=== PATIENT | female | born 1950 | race Hispanic/Latino ===

== ENCOUNTER 2017-01-22 14:10 | Outpatient (CLI) | payer MEDICARE ==
--- NOTE | 2017-01-22 15:33 | RAD ---
TWO VIEWS RIGHT HEEL: Comparison: None. History: Right heel pain for five months. FINDINGS: Two views of the right heel shows no evidence of acute fracture or dislocation. Small plantar and po sterior calcaneal enthesophytes are incidentally seen. No soft tissue swelling is seen. IMPRESSION: Small healed spurs without acute osseous abnormality. POS: [facility]
--- NOTE | 2017-01-22 15:35 | RAD ---
PA AND LATERAL CHEST: History: 66-year-old female with shortness of breath. Smoker. FINDINGS: The heart size is normal. The aorta is tortuous. The lungs are expanded without focal areas of conso lidation, pneumothorax, mass or pleural effusions. There are degenerative changes in the spine. IMPRESSION: No radiographic evidence of acute cardiopulmonary process. POS: [facility]
== END 2017-01-22 14:11 | disposition home or self-care (01) ==
LOC: NAV RAD 14:10
PROVIDERS: ATTEND Nurse Practitioner Family
DX: M79.671 Pain in right foot (principal); Z72.0 Tobacco use
CPT/HCPCS: 71020

== ENCOUNTER 2017-11-16 09:34 | Emergency (ER) | payer MEDICARE | END 2017-11-16 10:29 | disposition home or self-care (01) | LOC: NAV ERS 09:34 | DX: S20.162A Insect bite (nonvenomous) of breast, left breast, initial encounter (principal); N60.82 Other benign mammary dysplasias of left breast; E78.5 Hyperlipidemia, unspecified; I10 Essential (primary) hypertension; F41.9 Anxiety disorder, unspecified; F17.210 Nicotine dependence, cigarettes, uncomplicated; J45.909 Unspecified asthma, uncomplicated; Z79.899 Other long term (current) drug therapy; W57.XXXA Bitten or stung by nonvenomous insect and other nonvenomous arthropods, initial encounter | CPT/HCPCS: 99283 ==

== ENCOUNTER 2019-04-26 16:26 | Outpatient (CLI) | payer MEDICARE ==
--- NOTE | 2019-04-26 16:43 | RAD ---
Exam:3 views left shoulder. HISTORY: Pain. COMPARISON: None FINDINGS: Standard change in the acromioclavicular joint space. Glenohumeral joint space is preserved . No fracture or dislocation. Visualized left ribs are unremarkable. IMPRESSION: Degenerative change in the acromioclavicular joint space. No fracture or dislocation.
--- NOTE | 2019-04-26 16:46 | RAD ---
Exam:Right shoulder 3 views HISTORY: Pain. COMPARISON: None FINDINGS: Moderate degenerative change in the acromioclavicular joint space. Glenohumeral joint space preserved. No fracture or dislocation. Visualized right ribs are unremarkable IMPRESSION: Moderate degenerative change in the acromioclavicular joint space.
== END 2019-04-26 16:27 | disposition home or self-care (01) ==
LOC: NAV RAD 16:26
PROVIDERS: ATTEND Family Medicine
DX: M25.511 Pain in right shoulder (principal); M25.512 Pain in left shoulder; M19.011 Primary osteoarthritis, right shoulder; M19.012 Primary osteoarthritis, left shoulder

== ENCOUNTER 2022-02-28 11:08 | Emergency (ER) | payer MEDICARE, OTHER ==
[2022-02-28 12:28] LABS: #Basophils 0.1 thou/uL (0.0-0.2); #Eosinphils 0.2 thou/uL (0.0-0.7); #Lymphocytes 2.3 thou/uL (1.20-3.40); #Monocytes 0.6 thou/uL (0.11-0.59); #Neutrophils 4.4 thou/uL (1.40-6.50); %Basophils 0.7 % (0.0-1.0); %Eosinophils 2.1 % (0.0-10.0); %Lymphocytes 30.7 % (21.0-51.0); %Monocytes 7.8 % (0.0-10.0); %Neutrophils 58.7 % (42.0-75.0); Hemoglobin 14.6 g/dL (12.0-16.0); Mean Corpuscular HGB CONC 32.4 g/dL (32.0-36.0); Mean Corpuscular Hemoglobin 27.8 pg (27.0-31.0); Mean Corpuscular Volume 85.7 fl (78.0-98.0); Mean Platelet Volume 8.5 fL (7.4-10.4); Platelet Count 185 10x3/uL (130-400); RBC Distribution Width 11.9 % (11.5-14.5); Red Blood Cell (RBC) Count 5.26 mill/uL (4.20-5.40); White Blood Cell (WBC) Count 7.5 10x3/uL (4.8-10.8)
[2022-02-28] MEDS ORDERED: traMADol HCl 50 MG TAB ONE (12:33)
[2022-02-28 12:43] LABS: ALT (SGPT) 21 U/L (8-55); AST (SGOT) 15 U/L (5-34); Albumin 4.6 g/dL (3.4-4.8); Alkaline Phosphatase 87 U/L (40-110); Anion Gap 15 mmol/L (10-20); BUN (Urea Nitrogen) 11 mg/dL (9.8-20.1); Bilirubin, Total 0.5 mg/dL (0.2-1.2); Calc. Creatinine Clearance 0 mL/min (70-130); Calcium 9.5 mg/dL (7.8-10.44); Carbon Dioxide 26 mmol/L (23-31); Chloride 106 mmol/L (98-107); Estimated GFR 85; Globulin 2.7 g/dL (2.4-3.5); Glucose 90 mg/dL (83-110); Lipase 45 U/L (8-78); Potassium 4.1 mmol/L (3.5-5.1); Protein, Total 7.3 g/dL (5.8-8.1); Sodium 143 mmol/L (136-145)
[2022-02-28 12:47] LABS: Bilirubin Negative (Negative); Blood, Urine Trace (Negative); Glucose, Urine (Dipstick) Negative (Negative); Ketone, Urine Negative (Negative); Leukocyte Small (Negative); Nitrite Negative (Negative); Protein, Urine (Dipstick) Negative (Neg-Trace); Urobilinogen 0.2 mg/dL (Less than 2)
[2022-02-28 12:48] LABS: Clarity SL HAZY (Clear)
[2022-02-28 13:03] LABS: Bacteria/HPF 1+ HPF (None Seen); RBC/HPF 0-3 HPF (0-3); WBC/HPF 0-3 HPF (0-3)
== END 2022-02-28 13:08 | disposition home or self-care (01) ==
LOC: NAV ERS 11:08
DX: R22.31 Localized swelling, mass and lump, right upper limb (principal); E78.00 Pure hypercholesterolemia, unspecified; I10 Essential (primary) hypertension; F17.210 Nicotine dependence, cigarettes, uncomplicated
CPT/HCPCS: 71045; 80053; 81003; 81015; 83690; 84484; 85025; 87804; 93005

== ENCOUNTER 2022-11-24 10:26 | Outpatient (CLI) | payer OTHER, MEDICAID | END 2022-11-24 10:27 | disposition home or self-care (01) | LOC: NAV RAD 10:26 | PROVIDERS: ATTEND Nurse Practitioner Family | DX: M25.562 Pain in left knee (principal) ==